=== PATIENT | female | born 1975 | race Caucasian/White ===

== ENCOUNTER 2017-03-27 11:11 | Outpatient (CLI) | payer OTHER | END 2017-03-27 11:20 | LOC: LAB 11:11 → EDSTATUS 11:38 | PROVIDERS: ATTEND Specialist | DX: N95.1 Menopausal and female climacteric states (principal); E34.9 Endocrine disorder, unspecified; R53.83 Other fatigue | CPT/HCPCS: 36415; 82670; 82679; 83001; 84402 ==

== ENCOUNTER 2017-08-09 08:48 | Outpatient (CLI) | payer OTHER ==
[2017-08-09 17:49] LABS: VITAMIN D, 25-HYDROXY 21 ng/mL (30-100)
== END 2017-08-09 08:50 ==
LOC: LAB 08:48
PROVIDERS: ATTEND Specialist
DX: R68.82 Decreased libido (principal); F51.01 Primary insomnia; R53.81 Other malaise; N95.1 Menopausal and female climacteric states
CPT/HCPCS: 36415; 82306; 82607; 82670; 82679; 83001; 84402; 86141

== ENCOUNTER 2017-10-25 08:45 | Outpatient (CLI) | payer OTHER ==
[2017-10-25 09:03] LABS: BASOPHILS % 0.7 (0.0-1.5); MEAN CORPUSCULAR HEMOGLOBIN 31.4 pg (28.0-34.0); MEAN CORPUSCULAR VOLUME 90.5 fl (80.0-100.0); MONOCYTES % 3.4 % (0.0-11.0); NEUTROPHILS # 1.8 # k/uL (1.4-7.7)
[2017-10-25 09:32] LABS: eGFR (African) > 60; eGFR (Non-African) > 60
[2017-10-25 17:41] LABS: SERUM IRON 89 ug/dL (37-145)
== END 2017-10-25 13:22 ==
LOC: LAB 08:45
PROVIDERS: ATTEND Pathology Anatomic Pathology & Clinical Pathology
DX: Z53.8 Procedure and treatment not carried out for other reasons (principal)
CPT/HCPCS: 36415; 80053; 80061; 82728; 83540; 83550; 84443; 85025

== ENCOUNTER 2017-12-10 13:35 | Outpatient (CLI) | payer OTHER | END 2017-12-10 13:36 | LOC: LAB 13:35 | PROVIDERS: ATTEND Specialist | DX: R68.82 Decreased libido (principal); F51.01 Primary insomnia; R53.81 Other malaise; N95.1 Menopausal and female climacteric states | CPT/HCPCS: 36415; 82670; 82679; 83001; 84402 ==